=== PATIENT | female | born 1965 | race African-American/Black ===

== ENCOUNTER 2018-01-16 10:32 | Emergency (ER) | payer OTHER ==
[2018-01-16 10:57] LABS: Bilirubin Negative (Negative); Blood, Urine Negative (Negative); Clarity CLEAR (Clear); Glucose, Urine (Dipstick) Negative (Negative); Leukocyte Negative (Negative); Nitrite Negative (Negative); Protein, Urine (Dipstick) Negative (Neg-Trace); Specific Gravity, Urine 1.021 (1.002-1.036)
[2018-01-16 11:12] LABS: #Basophils 0.2 thou/uL (0.0-0.2); #Eosinphils 0.3 thou/uL (0.0-0.7); #Lymphocytes 3.2 thou/uL (1.20-3.40); #Monocytes 0.4 thou/uL (0.11-0.59); #Neutrophils 4.1 thou/uL (1.40-6.50); %Basophils 2.2 % (0.0-1.0); %Eosinophils 3.6 % (0.0-10.0); %Lymphocytes 38.9 % (21.0-51.0); %Monocytes 4.9 % (0.0-10.0); %Neutrophils 50.4 % (42.0-75.0); Hemoglobin 12.4 g/dL (12.0-16.0); Mean Corpuscular HGB CONC 32.2 g/dL (32.0-36.0); Mean Corpuscular Hemoglobin 26.8 pg (27.0-31.0); Mean Corpuscular Volume 83.2 fl (81.0-99.0); Mean Platelet Volume 8.6 fL (7.4-10.4); Platelet Count 231 thou/uL (130-400); RBC Distribution Width 13.9 % (11.5-14.5); Red Blood Cell (RBC) Count 4.62 mill/uL (4.20-5.40); White Blood Cell (WBC) Count 8.1 thou/uL (4.8-10.8)
[2018-01-16 11:33] LABS: ALT (SGPT) 21 U/L (8-55); AST (SGOT) 20 U/L (5-34); Albumin 4.5 g/dL (3.5-5.0); Alkaline Phosphatase 126 U/L (40-150); Anion Gap 12 mmol/L (10-20); BUN (Urea Nitrogen) 16 mg/dL (9.8-20.1); Bilirubin, Total 0.3 mg/dL (0.2-1.2); Calc. Creatinine Clearance 0 mL/min (70-130); Calcium 9.6 mg/dL (7.8-10.44); Carbon Dioxide 22 mmol/L (22-29); Chloride 108 mmol/L (98-107); Estimated GFR-MDRD 62; Globulin 3.8 g/dL (2.4-3.5); Glucose 93 mg/dL (70-105); Lipase 35 U/L (8-78); Potassium 3.7 mmol/L (3.5-5.1); Protein, Total 8.3 g/dL (6.0-8.3); Sodium 138 mmol/L (136-145)
[2018-01-16] MEDS ORDERED: Morphine 4 MG/ML VIAL ONE (11:54)
[2018-01-16] MEDS ORDERED: Ondansetron HCl/PF 4 MG/2 ML Vial ONE (11:54)
[2018-01-16] MEDS ORDERED: Lidocaine Viscous Sol 2% 15 ml UD Cup ONE (12:51)
[2018-01-16] MEDS ORDERED: Mag-Al 1200 mg/1200 mg/30 ML UDCUP ONE (12:51)
[2018-01-16] MEDS ORDERED: ISOVUE-370 76%-LOCM 1 ML ONE (13:35)
[2018-01-16] MEDS ORDERED: Iopamidol 370 76% 50 ML VIAL FS ONE (13:35)
--- NOTE | 2018-01-16 14:42 | CT ---
CT ABDOMEN AND PELVIS WITH ORAL AND IV CONTRAST: Date: 01/16/18 HISTORY: Abdominal pain with nausea, no vomiting. FINDINGS: Comparison made with exam of 01/25/17. There is mild dependent change at the right lung base. No free air, free fluid, or lymphadenopathy se en in the abdomen or pelvis. No calcified gallstones are noted. The liver, spleen, pancreas, adrenal glands, and kidneys are normal. The small bowel loops are not abnormally dilated. A normal appearing appendix is seen. There are vascular calcifications without evidence of aneurysmal dilatation of the abdominal aorta. There is fecal material in the colon. There are mild degenerative changes in the spi ne. IMPRESSION: No acute process. POS: [facility]
[2018-01-16] MEDS ORDERED: Sucralfate 1 GM TAB PO SCH (14:45)
== END 2018-01-16 16:15 | disposition home or self-care (01) ==
LOC: ERS 10:32
DX: K29.00 Acute gastritis without bleeding (principal); E78.5 Hyperlipidemia, unspecified; I10 Essential (primary) hypertension; J45.909 Unspecified asthma, uncomplicated; F41.9 Anxiety disorder, unspecified; Z79.899 Other long term (current) drug therapy
CPT/HCPCS: 36415; 74177; 80053; 81003; 82274; 83605; 83690; 85025; 93005; 96361; 96374; 96375; J2270; J2405

== ENCOUNTER 2018-03-27 10:35 | Emergency (ER) | payer SELFPAY ==
[2018-03-27 11:12] LABS: #Eosinphils 0.2 thou/uL (0.0-0.7); #Lymphocytes 0.9 thou/uL (1.20-3.40); #Monocytes 0.3 thou/uL (0.11-0.59); #Neutrophils 7.6 thou/uL (1.40-6.50); %Basophils 0.5 % (0.0-1.0); %Eosinophils 2.4 % (0.0-10.0); %Lymphocytes 9.9 % (21.0-51.0); %Monocytes 3.7 % (0.0-10.0); %Neutrophils 83.5 % (42.0-75.0); Mean Corpuscular HGB CONC 32.8 g/dL (32.0-36.0); Mean Corpuscular Hemoglobin 26.6 pg (27.0-31.0); Mean Corpuscular Volume 81.1 fl (81.0-99.0); Mean Platelet Volume 9.1 fL (7.4-10.4); Platelet Count 255 thou/uL (130-400); RBC Distribution Width 13.2 % (11.5-14.5); Red Blood Cell (RBC) Count 4.89 mill/uL (4.20-5.40); White Blood Cell (WBC) Count 9.1 thou/uL (4.8-10.8)
[2018-03-27 11:27] LABS: ALT (SGPT) 31 U/L (8-55); AST (SGOT) 38 U/L (5-34); Albumin 4.4 g/dL (3.5-5.0); Alkaline Phosphatase 133 U/L (40-150); Anion Gap 11 mmol/L (10-20); BUN (Urea Nitrogen) 14 mg/dL (9.8-20.1); Bilirubin, Total 0.2 mg/dL (0.2-1.2); CK (CPK) 618 U/L (29-168); Calc. Creatinine Clearance 0 mL/min (70-130); Calcium 9.3 mg/dL (7.8-10.44); Carbon Dioxide 24 mmol/L (22-29); Chloride 105 mmol/L (98-107); Estimated GFR-MDRD 59; Globulin 4.3 g/dL (2.4-3.5); Glucose 113 mg/dL (70-105); Lipase 15 U/L (8-78); Potassium 3.8 mmol/L (3.5-5.1); Protein, Total 8.7 g/dL (6.0-8.3); Sodium 136 mmol/L (136-145)
[2018-03-27 11:30] LABS: CKMB 5.1 ng/mL (0-6.6); Troponin I Less than 0.010 ng/mL (< 0.028)
[2018-03-27] MEDS ORDERED: Metoprolol Tartrate 5 MG/5 ML VIAL ONE (11:41)
[2018-03-27] MEDS ORDERED: Nitroglycerin 2% Ointment 1 INCH/1 GM Packet ONE (11:41)
--- NOTE | 2018-03-27 12:11 | RAD ---
PORTABLE UPRIGHT FRONTAL CHEST RADIOGRAPH: Date: 03-27-18 Comparison: None. History: Pain. FINDINGS: Lungs are clear. Heart and mediastinal contours are unremarkable. IMPRESSION: No acute findings. POS: [facility]
--- NOTE | 2018-03-27 12:12 | RAD ---
TWO VIEWS LEFT HIP: Comparison: 03-30-14 History: Pain. FINDINGS: Contour of the femoral head is maintained. Joint space is preserved. No fracture or malalignment. IMPRESSION: Unremarkable two views left hip. POS: [facility]
[2018-03-27] MEDS ORDERED: Ketorolac Tromethamine 30 MG/ML VIAL ONE (12:44)
--- NOTE | 2018-03-27 13:11 | ULT ---
RIGHT UPPER QUADRANT ULTRASOUND: Date: 03-27-18 Comparison: None. History: Right upper quadrant pain. Technique: Multiplanar grayscale sonographic imaging of the right upper quadrant obtained. FINDINGS: The pancreas is obscured by bowel gas. No focal liver lesion or intrahepatic biliary dilatation is se en. The common bile duct measures 5 mm, within normal limits. No gallbladder wall thickening or perichole cystic fluid seen. No gallstones are noted. The broke handler reports a negative Ch's sign. The right kidney measures 9 cm in craniocaudal dimension and demonstrates no stone, hydronephrosis or mass. IMPRESSION: Unremarkable right upper quadrant ultrasound. POS: [facility]
== END 2018-03-27 12:59 | disposition home or self-care (01) ==
LOC: ERS 10:35
DX: R07.9 Chest pain, unspecified (principal); M25.552 Pain in left hip; E78.5 Hyperlipidemia, unspecified; I10 Essential (primary) hypertension; J45.909 Unspecified asthma, uncomplicated; F41.9 Anxiety disorder, unspecified; Z79.899 Other long term (current) drug therapy
CPT/HCPCS: 71045; 76705; 80053; 82553; 83690; 84484; 85025; 85379; 93005; 96374; 96375; J1885

== ENCOUNTER 2018-06-26 11:04 | Emergency (ER) | payer SELFPAY ==
[2018-06-26] MEDS ORDERED: Lidocaine Viscous Sol 2% 15 ml UD Cup ONE (11:22)
[2018-06-26] MEDS ORDERED: Famotidine 20 MG TAB ONE (11:22)
[2018-06-26] MEDS ORDERED: Mag-Al 1200 mg/1200 mg/30 ML UDCUP ONE (11:22)
[2018-06-26 11:27] LABS: #Basophils 0.1 thou/uL (0.0-0.2); #Eosinphils 0.3 thou/uL (0.0-0.7); #Lymphocytes 3.1 thou/uL (1.20-3.40); #Monocytes 0.5 thou/uL (0.11-0.59); #Neutrophils 4.2 thou/uL (1.40-6.50); %Basophils 1.7 % (0.0-1.0); %Eosinophils 3.2 % (0.0-10.0); %Lymphocytes 37.6 % (21.0-51.0); %Neutrophils 51.4 % (42.0-75.0); Hemoglobin 10.7 g/dL (12.0-16.0); Mean Corpuscular HGB CONC 32.9 g/dL (32.0-36.0); Mean Corpuscular Hemoglobin 24.7 pg (27.0-31.0); Mean Corpuscular Volume 75.2 fL (78.0-98.0); Mean Platelet Volume 9.2 fL (7.4-10.4); Platelet Count 228 thou/uL (130-400); RBC Distribution Width 13.7 % (11.5-14.5); Red Blood Cell (RBC) Count 4.35 mill/uL (4.20-5.40); White Blood Cell (WBC) Count 8.2 thou/uL (4.8-10.8)
[2018-06-26 11:43] LABS: Bilirubin Negative (Negative); Blood, Urine Negative (Negative); Clarity TURBID (Clear); Glucose, Urine (Dipstick) Negative (Negative); Leukocyte Negative (Negative); Nitrite Negative (Negative); Protein, Urine (Dipstick) Negative (Neg-Trace); Specific Gravity, Urine 1.024 (1.002-1.036); Urobilinogen 0.2 mg/dL (0.2-1.0)
[2018-06-26 11:54] LABS: ALT (SGPT) 73 U/L (8-55); AST (SGOT) 47 U/L (5-34); Albumin 4.3 g/dL (3.5-5.0); Alkaline Phosphatase 116 U/L (40-150); Anion Gap 14 mmol/L (10-20); BUN (Urea Nitrogen) 14 mg/dL (9.8-20.1); Bilirubin, Total 0.2 mg/dL (0.2-1.2); Calc. Creatinine Clearance 0 mL/min (70-130); Calcium 9.5 mg/dL (7.8-10.44); Carbon Dioxide 25 mmol/L (22-29); Chloride 103 mmol/L (98-107); Estimated GFR-MDRD 53; Globulin 3.7 g/dL (2.4-3.5); Glucose 101 mg/dL (70-105); Lipase 43 U/L (8-78); Sodium 138 mmol/L (136-145)
--- NOTE | 2018-06-26 12:30 | ULT ---
RIGHT UPPER QUADRANT ULTRASOUND: 06/26/2018 HISTORY: Right upper quadrant abdominal pain. COMPARISON: 03/27/2018 FINDINGS: The liver, limited visualized portions of the pancreas, visualized portions of the IVC, gallbladder, and right kidney demonstrate a normal sonographic appearance. However, the common duct is dilated, m easuring 0.7 cm. No intrahepatic biliary ductal dilatation is appreciated on this exam. There is a linear echogenic focus near the neck of the gallbladder, which is most likely compatible with a gallb ladder fold. No gallbladder calculus is seen. IMPRESSION: 1. Dilated common duct of uncertain etiology. Endoscopic retrograde cholangiopancreatography versus magnetic resonance cholangiopancreatography may be helpful for further evaluation. 2. No gallbladder calculi are seen. POS: [facility]
== END 2018-06-26 12:27 | disposition home or self-care (01) ==
LOC: ERS 11:04
DX: R10.13 Epigastric pain (principal); E78.5 Hyperlipidemia, unspecified; I10 Essential (primary) hypertension; J45.909 Unspecified asthma, uncomplicated; F41.9 Anxiety disorder, unspecified; Z79.899 Other long term (current) drug therapy
CPT/HCPCS: 76705; 80053; 81003; 83690; 85025

== ENCOUNTER 2018-10-02 13:08 | Emergency (ER) | payer SELFPAY ==
[2018-10-02 15:19] LABS: #Basophils 0.1 thou/uL (0.0-0.2); #Eosinphils 0.2 thou/uL (0.0-0.7); #Lymphocytes 3.3 thou/uL (1.20-3.40); #Monocytes 0.4 thou/uL (0.11-0.59); #Neutrophils 3.2 thou/uL (1.40-6.50); %Basophils 1.4 % (0.0-1.0); %Eosinophils 3.1 % (0.0-10.0); %Lymphocytes 45.2 % (21.0-51.0); %Monocytes 5.4 % (0.0-10.0); %Neutrophils 44.8 % (42.0-75.0); Mean Corpuscular HGB CONC 33.3 g/dL (32.0-36.0); Mean Platelet Volume 9.7 fL (7.4-10.4); Platelet Count 227 thou/uL (130-400); RBC Distribution Width 18.4 % (11.5-14.5); Red Blood Cell (RBC) Count 4.26 mill/uL (4.20-5.40); White Blood Cell (WBC) Count 7.2 thou/uL (4.8-10.8)
[2018-10-02] MEDS ORDERED: Metoclopramide HCl 10 MG/2 ML VIAL ONE (15:19)
[2018-10-02] MEDS ORDERED: diphenhydrAMINE 50 MG/ML VIAL ONE (15:19)
[2018-10-02] MEDS ORDERED: Ketorolac Tromethamine 30 MG/ML VIAL ONE (15:19)
--- NOTE | 2018-10-02 15:23 | CT ---
CT HEAD NONCONTRAST: Date: 10/02/18 INDICATION: Seizure. FINDINGS: There is no evidence of acute intracranial hemorrhage, mass effect, midline shift, or ventriculomegal y. No acute fluid level of the paranasal sinuses. IMPRESSION: No acute intracranial hemorrhage or mass effect. POS: [facility]
[2018-10-02 15:41] LABS: Anion Gap 13 mmol/L (10-20); BUN (Urea Nitrogen) 19 mg/dL (9.8-20.1); Calc. Creatinine Clearance 0 mL/min (70-130); Calcium 9.4 mg/dL (7.8-10.44); Carbon Dioxide 26 mmol/L (22-29); Chloride 105 mmol/L (98-107); Estimated GFR-MDRD 50; Glucose 92 mg/dL (70-105); Sodium 141 mmol/L (136-145)
== END 2018-10-02 16:32 | disposition home or self-care (01) ==
LOC: ERS 13:08
DX: R51 Headache (principal); E78.5 Hyperlipidemia, unspecified; F41.9 Anxiety disorder, unspecified; I10 Essential (primary) hypertension; J45.909 Unspecified asthma, uncomplicated; Z79.899 Other long term (current) drug therapy
CPT/HCPCS: 70450; 80048; 85025; 96365; 96375; J1200; J1885; J2765

== ENCOUNTER 2018-11-19 11:51 | Emergency (ER) | payer SELFPAY ==
[2018-11-19 13:03] LABS: #Basophils 0.1 thou/uL (0.0-0.2); #Eosinphils 0.1 thou/uL (0.0-0.7); #Lymphocytes 3.1 thou/uL (1.20-3.40); #Monocytes 0.4 thou/uL (0.11-0.59); #Neutrophils 4.3 thou/uL (1.40-6.50); %Basophils 1.2 % (0.0-1.0); %Eosinophils 1.7 % (0.0-10.0); %Lymphocytes 38.1 % (21.0-51.0); %Monocytes 5.3 % (0.0-10.0); %Neutrophils 53.8 % (42.0-75.0); Hemoglobin 12.1 g/dL (12.0-16.0); Mean Corpuscular HGB CONC 33.8 g/dL (32.0-36.0); Mean Corpuscular Hemoglobin 27.4 pg (27.0-31.0); Mean Corpuscular Volume 80.9 fL (78.0-98.0); Mean Platelet Volume 9.2 fL (7.4-10.4); Platelet Count 236 thou/uL (130-400); RBC Distribution Width 15.6 % (11.5-14.5); Red Blood Cell (RBC) Count 4.43 mill/uL (4.20-5.40)
[2018-11-19 13:15] LABS: ALT (SGPT) 44 U/L (8-55); AST (SGOT) 35 U/L (5-34); Albumin 4.6 g/dL (3.5-5.0); Alkaline Phosphatase 115 U/L (40-150); Anion Gap 11 mmol/L (10-20); BUN (Urea Nitrogen) 15 mg/dL (9.8-20.1); Bilirubin, Total 0.3 mg/dL (0.2-1.2); Calc. Creatinine Clearance 0 mL/min (70-130); Calcium 10.2 mg/dL (7.8-10.44); Carbon Dioxide 27 mmol/L (22-29); Chloride 105 mmol/L (98-107); Estimated GFR-MDRD 45; Globulin 3.7 g/dL (2.4-3.5); Glucose 102 mg/dL (70-105); Potassium 3.8 mmol/L (3.5-5.1); Protein, Total 8.3 g/dL (6.0-8.3); Sodium 139 mmol/L (136-145)
--- NOTE | 2018-11-19 13:43 | RAD ---
CHEST ONE VIEW: History: Pain x two days. Comparison: 03-27-18 FINDINGS: Slight elongation of the aorta. Normal cardiac silhouette. The pulmonary vessels and hilum are normal . Costophrenic angles are clear. No masses. No consolidation. No pneumothorax or osseous abnormalitie s. IMPRESSION: No acute cardiopulmonary process. POS: [facility]
[2018-11-19] MEDS ORDERED: HYDROcodone/Acetaminophen 5/325 mg Tablet ONE (14:50)
[2018-11-19 15:16] LABS: Troponin I Less than 0.010 ng/mL (< 0.028)
[2018-11-19] MEDS ORDERED: Morphine 4 MG/ML VIAL ONE (16:36)
--- NOTE | 2018-11-22 10:59 | EKG ---
Test Reason : CP Blood Pressure : / mmHG Vent. Rate : 074 BPM Atrial Rate : 074 BPM P-R Int : 174 ms QRS Dur : 090 ms QT Int : 414 ms P-R-T Axes : 038 -03 030 degrees QTc Int : 459 ms Sinus rhythm with Premature atrial complexes Confirmed by JOSE A NEVAREZ DO ([id number]), editorial specialist CAM ALONSO ([id number]) on 11/22/2018 10:59:24 AM Referred By: Confirmed By:JOSE A NEVAREZ DO
== END 2018-11-19 17:37 | disposition home or self-care (01) ==
LOC: ERS 11:51
DX: R07.89 Other chest pain (principal); E78.5 Hyperlipidemia, unspecified; I10 Essential (primary) hypertension; J45.909 Unspecified asthma, uncomplicated; F41.9 Anxiety disorder, unspecified; F32.9 Major depressive disorder, single episode, unspecified; Z79.899 Other long term (current) drug therapy
CPT/HCPCS: 36415; 71045; 80053; 84484; 85025; 85379; 93005; 96374; J2270

== ENCOUNTER 2020-03-19 22:55 | Observation (INO) | payer SELFPAY ==
[2020-03-19] MEDS ORDERED: Nitroglycerin 2% Ointment 1 INCH/1 GM Packet ONE (23:22)
[2020-03-19] MEDS ORDERED: Ketorolac Tromethamine 30 MG/ML VIAL IVP SCH (23:59)
[2020-03-20] MEDS ORDERED: Acetaminophen 325 MG TAB PO PRN (00:05)
[2020-03-20] MEDS ORDERED: Promethazine HCl 12.5 MG in Sodium Chloride 0.9% 50 ML IVPB PRN (00:05)
[2020-03-20] MEDS ORDERED: Labetalol HCl 100 MG/20 ML VIAL SLOW IVP PRN ×2 (00:05→03:45)
[2020-03-20] MEDS ORDERED: Ondansetron PF 4 MG/2 ML Vial IVP PRN (00:05)
[2020-03-20] MEDS ORDERED: cloNIDine 0.1 MG TAB PO PRN (00:05)
[2020-03-20] MEDS ORDERED: hydrALAZINE 20 MG/ML VIAL SLOW IVP PRN ×2 (00:05→03:45)
--- NOTE | 2020-03-20 00:07 | PDOC.HHP ---
Hospitalist HPI - History of Present Illness Shoulder pain History of Present Illness: Patient is a 54 year old female with PMH HTN, HLD, Asthma, seizures, anxiety, and depression. who presents as transfer from [facility] for a few days of L chest and L shoulder pain, antalgia and reduced ROM due to pain. Patient did not have any twists, trauma or other injuries to the region. She also complains of headache and reduced strength in that arm. At outside hospital, 4/5 strength in that arm noted and patient given ASA, NIHSS recorded as 4-7, CT head negative for acute IC processes, EKG without acute changes, transferred for further workup and care. She has a remote history of CVA possibly. hadd previous heart cath, does not recall heart disease diagnosis. Hospitalist ROS - Review of Systems Constitutional: denies: fever, chills, sweats, weakness, malaise, other Eyes: denies: pain, vision change, conjunctivae inflammation, eyelid inflammation, redness, other ENT: denies: ear pain, ear discharge, nose pain, nose discharge, nose congestion , mouth pain, mouth swelling, throat pain, throat swelling, other Respiratory: denies: cough, dry, shortness of breath, hemoptysis, SOB with excertion, pleuritic pain, sputum, wheezing, other Cardiovascular: reports: chest pain, other (R sided chest and shoulder pain) Gastrointestinal: denies: nausea, vomiting, abdominal pain, diarrhea, constipation, melena, hematochezia, other Genitourinary: denies: dysuria, frequency, incontinence, hematuria, retention, other Musculoskeletal: reports: neck pain, shoulder pain, arm pain Skin: denies: rash, lesions, sherrell, bruising, other Neurological: reports: weakness, numbness. denies: incoordination, change in speech, confusion, seizures All other systems reviewed; all pertinent +/- noted in HPI/Subj Hospitalist History - Past Medical History Other Medical History: hyperlipidemia, high cholesterol, hypertension, asthma, "seizures" started 2017. GERD. - Past Surgical History Other Surgical History: heart catheterization 1991, hysterectomy 1996, C section 1991. - Family History Family History: reports: no pertinent history - Social History Smoking Status: Never smoker Alcohol: reports: None Drugs: reports: none - Exam General Appearance: NAD, awake alert Eye: PERRL, anicteric sclera ENT: normocephalic atraumatic, no oropharyngeal lesions, moist mucosa Neck: supple, symmetric, no JVD, no thyromegaly, no lymphadenopathy, no carotid bruit Heart: RRR, no murmur, no gallops, no rubs, normal peripheral pulses Heart - other findings: Chest wall tenderness L sided Respiratory: CTAB, no wheezes, no rales, no ronchi, normal chest expansion, no tachypnea, normal percussion Gastrointestinal: soft, non-tender, non-distended, normal bowel sounds, no palpable masses, no hepatomegaly, no splenomegaly, no bruit Extremities: no cyanosis, no clubbing, no edema Skin: normal turgor, no lesions, no rashes Neurological: cranial nerve grossly intact. negative: facial droop Neurological - other findings: L sided reduced Musculoskeletal - other findings: L shoulder ROM limited due to pain, unable to move without bad pain Psychiatric: normal affect, normal behavior, A&O x 3 Hospitalist Results - Labs Additional comment: VITAL SIGNS Sat March 19, 2020 22:56 ANNITA Garcia Kaitlyn BP: 118/84 MAP: 95 Pulse: 96 Resp: 16 Temp: 98.5 (Oral) Pain: 9 O2 sat: 99 on (Room Air) Time: 03/19/2020 22:56. VITAL SIGNS Sat March 19, 2020 23:56 ANNITA Panda Miranda BP: 108/74 Pulse: 85 Resp: 15 O2 sat: 99 on (Room Air) Time: 03/19/2020 23:56. Tni 0.032 CK 176 - EKG Interpretation EKG: NSR 90 bpm TX 144 QTc 479 Hospitalist H&P A/P - Plan Plan: Patient is a 54 year old female with PMH HTN, HLD, Asthma, seizures, anxiety, and depression. who presents as transfer from [facility] for a few days of L chest and L shoulder pain # L chest and shoulder pain and tenderness w/ reduced strength and sensation - patient reports a few days of pain and reduced ROM, sensation, strength L arm , given antalgia and ROM limited due to pain and pain with llifting shoulder above parrallel, seems more like a rotator cuff tear or MSK/peripheral injury than a CVA, however since facial droop and leg weakness reported in [facility] docs will complete stroke workup to be sure. - admit to telemetry floor - stroke order set, MRI head, echo, ASA, statin - MRI shoulder to rule out rotator cuff tear - shoulder plain film - toradol x 2 doses. i most strongly suspect MSK process # equivocal troponin elevation - moderate elevation, chest pain and tednderness not exacetly typical for heart disease, but if no other cause found may be worth ruling out CAD - trend troponin - echo - consider stress test based on clinical progress # HTN - permissive for now # HLD - statin ordered, increased to atorvastatin 40mg # history of seizures - continue seizure meds, order levels # psychiatric/mood disorder - continue home meds # asthma - PRN nebs, no wheezing on my exam DVT/GI ppx
[2020-03-20 00:54] LABS: CKMB 1.5 ng/mL (0-6.6)
[2020-03-20] MEDS: Ketorolac Tromethamine 30 MG/ML VIAL IVP SCH ×2 (01:34→09:07)
[2020-03-20 03:26] LABS: Troponin I 0.022 ng/mL (< 0.028)
[2020-03-20] MEDS ORDERED: Insulin Regular 300 UNITS/3 ML VIAL SC PRN (03:45)
[2020-03-20 04:34] VITALS: BMI 20.3
[2020-03-20] MEDS: HYDROcodone/Acetaminophen 5/325 mg Tablet PO PRN (06:35)
[2020-03-20 07:00] LABS: Troponin I 0.021 ng/mL (< 0.028)
--- NOTE | 2020-03-20 07:52 | RAD ---
RADIOGRAPH LEFT SHOULDER 3VIEWS: DATE: 03/20/2020 HISTORY: 54-year-old female with acute left shoulder pain FINDINGS: There is no evidence of fracture or dislocation. There is no evidence of periostitis, permeative lesi on, osteolytic lesion, or osteoblastic lesion. The joint spaces are maintained without erosions or significant osteophytes. No soft tissue calcifications. IMPRESSION: Negative
[2020-03-20] MEDS ORDERED: Nitroglycerin 0.4 MG TAB (25 Tab Bottle) SL PRN (08:33)
[2020-03-20] MEDS ORDERED: Amlodipine 10 MG TAB PO SCH (09:00)
[2020-03-20] MEDS: Enoxaparin Sodium 40 MG/0.4 ML SYRINGE SC SCH (09:05)
[2020-03-20] MEDS: Polyethylene Glycol 3350 17 GM Packet PO SCH (09:06)
[2020-03-20] MEDS: Aspirin 325 mg Enteric Coated Tablet PO SCH (09:06)
--- NOTE | 2020-03-20 10:46 | MRI ---
EXAM: MRI Brain WO Con PROVIDED CLINICAL HISTORY: Stroke COMPARISON: Noncontrast CT head 10/02/2018 FINDINGS: No signal abnormalities are seen throughout the brain. There is no restricted diffusion to suggest an acute infarction. Mild cerebral volume loss is present. The septum pellucidum and third ventricle are in the midline. The ventricular system is normal in size, shape, and position for the degree of s ulcal atrophy. Left vertebral artery flow-void is dominant. Right vertebral artery flow-void is not well seen, and t he right vertebral artery likely terminates in PICA. There are otherwise appropriate flow voids demonstrated in the large intracranial vessels at the base of the brain. Paranasal sinuses and skull base demonstrate a normal MRI appearance. Incidental note is made of a pa rtially empty sella turcica. IMPRESSION: No acute intracranial abnormality.
[2020-03-20] MEDS: Morphine 2 MG/ML SYRINGE SLOW IVP PRN ×2 (12:11→20:09)
[2020-03-20] MEDS ORDERED: Atorvastatin Calcium 10 MG TAB PO SCH (21:00)
[2020-03-20] MEDS ORDERED: Topiramate 25 MG TAB PO SCH (21:00)
[2020-03-20] MEDS ORDERED: Atorvastatin Calcium 40 MG TAB PO SCH (21:00)
[2020-03-21 05:14] LABS: Cardiac Risk 4.3 (Less than 4.5)
[2020-03-21] MEDS: HYDROcodone/Acetaminophen 5/325 mg Tablet PO PRN (07:52)
[2020-03-21] MEDS ORDERED: Regadenoson 0.4 MG/5 ML SYRINGE ONE (09:13)
--- NOTE | 2020-03-21 09:14 | MRI ---
MRI LEFT SHOULDER WITHOUT CONTRAST: HISTORY: Shoulder pain. COMPARISON: Radiograph of same day. FINDINGS: BICEPS TENDON: Mild intraarticular tendinosis. LABRUM: Mild free edge fraying and volume of the superior and posterior labrum without a displaced t ear. ROTATOR CUFF: There is some low-grade hidden interstitial tearing of the anterior fibers infraspinat us tendon at the footprint with the largest involving 30% of the footprint with an AP dimension of 4 mm. A small interstitial-type delamination along the mid and posterior fibers and infraspinatus tend on. There is also some low-grade undersurface tearing of the critical zone supraspinatus tendon 20-3 0% thickness. Subscapularis is intact. BONES: Type II acromion. Mild degenerative disease of the acromioclavicular joint. No acute fractu re. MUSCLES: Muscle signal and bulk is normal. SOFT TISSUES: Small subacromial subdeltoid bursa effusion. Normal appearance of the subcoracoid fat and axillary pouch. IMPRESSION: 1. Low-grade undersurface partial tearing 20-30% thickness and nearly the entire supraspinatus tendo n at the critical zone without a full-thickness perforation. 2. 30% hidden interstitial tear of the anterior 3-4 mm fibrous infraspinatus tendon at the footprint with some adjacent interstitial delamination. 3. Mild volume loss of the superior and posterior labrum without a displaced tear. 4. Small subacromial subdeltoid bursa effusion. 5. Edema within the posterior deltoid musculature and adjacent superficial fat. This suggests a rec ent fall or contusion. No muscle atrophy. POS: [facility]
[2020-03-21] MEDS: Aspirin 325 mg Enteric Coated Tablet PO SCH (11:38)
[2020-03-21] MEDS: Enoxaparin Sodium 40 MG/0.4 ML SYRINGE SC SCH (11:38)
[2020-03-21] MEDS: Polyethylene Glycol 3350 17 GM Packet PO SCH (11:38)
[2020-03-21 11:52] VITALS: TEMP 99
--- NOTE | 2020-03-21 12:16 | NM ---
Radionucleotide stress and rest myocardial perfusion scan with CT attenuation correction and SPECT im aging Left ventricular wall motion evaluation and ejection fraction HISTORY: Chest pain. FINDINGS: Lexiscan protocol. There is homogeneous uptake of radiotracer throughout the left ventricul ar myocardium. No focal perfusion defect or reversibility. Diaphragmatic attenuation is noted at the base. QGS analysis of gated SPECT images shows no focal wall motion abnormalities. Ejection fraction calcul ated at 57%. IMPRESSION : Normal exam. Normal LVEF.
[2020-03-21 15:49] VITALS: BP 112/56
--- NOTE | 2020-03-22 02:01 | DIS ---
DATE OF ADMISSION: 03/20/2020 DATE OF DISCHARGE: 03/21/2020 DISCHARGE DIAGNOSES: 1. Atypical chest pain. 2. Hypertension. 3. Hyperlipidemia. 4. History of seizures. 5. Psychiatric mood disorder. 6. Asthma. DISCHARGE MEDICATIONS: 1. Topiramate 25 mg orally nightly. 2. Gabapentin 300 mg orally nightly. 3. Keppra 500 mg twice a day. 4. Lisinopril 20 mg orally daily. 5. Omeprazole 20 mg orally daily. 6. Pravastatin 40 mg orally nightly. 7. Tramadol 50 mg orally q.6 hours as needed for pain. HISTORY OF PRESENT ILLNESS AND HOSPITAL COURSE: The patient is a 54-year-old female with history of hypertension, hyperlipidemia, asthma, seizure disorder, anxiety and depression, who was transferred to the hospital from [facility] due to complaints of chest pain. The patient stated that her pain gets worse when she moves her left shoulder. She denies any trauma to the region. At the outside facility, the strength in her left upper extremity was noted to be low. Her NIH Stroke Scale was reportedly [address] scan of the head was negative. The patient was placed in observation. Her troponin levels were trended and they were negative. Nuclear pharmacological stress test was obtained and did not show any evidence of reversible ischemia. MRI of the brain was done and did not show any acute intracranial abnormalities. The patient's chest pain is likely noncardiac. She is stable to be discharged home with outpatient followup with PCP in 1 week. Job ID: [id number]
[2020-03-22 11:14] LABS: Topiramate (Topamax) Test None Detected ug/mL (2.0-25.0)
--- NOTE | 2020-03-23 15:48 | EKG ---
Test Reason : TIA Blood Pressure : / mmHG Vent. Rate : 090 BPM Atrial Rate : 090 BPM P-R Int : 144 ms QRS Dur : 076 ms QT Int : 392 ms P-R-T Axes : 048 019 047 degrees QTc Int : 479 ms Normal sinus rhythm Prolonged QT Abnormal ECG Confirmed by KEVON NARAYAN ([id number]), newspaper photo editor ZAYDA GONZALES ([id number]) on 03/23/2020 3:48:30 PM Referred By: GABRIELA Confirmed By:KEVON NARAYAN
== END 2020-03-21 14:18 | disposition home or self-care (01) ==
LOC: ERS 22:55 → 2SE 03-20 00:43
PROVIDERS: ADMIT Internal Medicine; ATTEND Internal Medicine
DX: R07.89 Other chest pain (principal); M75.112 Incomplete rotator cuff tear or rupture of left shoulder, not specified as traumatic; M75.22 Bicipital tendinitis, left shoulder; M19.012 Primary osteoarthritis, left shoulder; I10 Essential (primary) hypertension; E78.5 Hyperlipidemia, unspecified; F39 Unspecified mood [affective] disorder; J45.909 Unspecified asthma, uncomplicated; F32.9 Major depressive disorder, single episode, unspecified; F41.9 Anxiety disorder, unspecified; K21.9 Gastro-esophageal reflux disease without esophagitis; E78.00 Pure hypercholesterolemia, unspecified; R79.89 Other specified abnormal findings of blood chemistry; F90.9 Attention-deficit hyperactivity disorder, unspecified type; Z79.899 Other long term (current) drug therapy; Z88.2 Allergy status to sulfonamides; Z88.8 Allergy status to other drugs, medicaments and biological substances
CPT/HCPCS: 36415; 36416; 70551; 78452; 80061; 80201; 82550; 82553; 84484; 93005; 93017; 93306; 96374; 96375; 96376; A9500; G0378; J1650; J1885; J2270; J2785

== ENCOUNTER 2023-08-16 08:24 | Outpatient (CLI) | payer MEDICARE | END 2023-08-16 08:25 | disposition home or self-care (01) | LOC: BICULT 08:24 | PROVIDERS: ATTEND Family Medicine | DX: R22.30 Localized swelling, mass and lump, unspecified upper limb (principal) | CPT/HCPCS: 76999 ==